=== PATIENT | male | born 1985 | race Caucasian/White ===

== ENCOUNTER 2016-12-29 01:25 | Emergency (ER) | payer OTHER ==
[2016-12-29 01:33] VITALS: BP 158/80; PULSE 89; O2SAT 98
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
--- NOTE | 2016-12-29 09:17 | XRAY ---
Indication: Right back pain. Comparison: April 15, 2015. 3 views of the lumbar spine unchanged again demonstrating normal alignment with minimal L3-L5 anterior endplate spurring, and partially visualized left femoral head orthopedic hardware. Again no new/acute findings.
== END 2016-12-29 02:10 | disposition home or self-care (01) ==
LOC: ED 01:25
DX: M54.5 Low back pain (principal); G89.29 Other chronic pain; M62.830 Muscle spasm of back
CPT/HCPCS: 72100; 80307; 99282; 99283

== ENCOUNTER 2017-01-20 13:23 | Emergency (ER) | payer OTHER ==
[2017-01-20] MEDS ORDERED: TORAdol 30 mg Injection IM ONE (13:32)
[2017-01-20] MEDS ORDERED: Norflex 60 MG/2 ML IM ONE (13:33)
[2017-01-20] MEDS ORDERED: Norflex 60 MG/2 ML ONE (13:36)
[2017-01-20] MEDS ORDERED: TORAdol 30 mg Injection ONE (13:36)
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
[2017-01-20 14:25] VITALS: BP 142/74; PULSE 66; O2SAT 98
--- NOTE | 2017-01-20 21:28 | XRAY ---
Indication: Pain following fall. Comparison: December 29, 2016. 5 views of the lumbar spine unchanged again demonstrating normal alignment with minimal L3-L5 anterior endplate spurring, L5-S1 disc space narrowing, and partially visualized left femoral head orthopedic hardware. No new/acute findings
--- NOTE | 2017-01-20 21:28 | XRAY ---
Indication: Pain following fall. Comparison: None 2 views of the right hip negative for acute fracture, dislocation, or suspicious bony lesions. Soft tissues unremarkable.
== END 2017-01-20 14:25 | disposition home or self-care (01) ==
LOC: ED 13:23
DX: S70.01XA Contusion of right hip, initial encounter (principal); S39.012A Strain of muscle, fascia and tendon of lower back, initial encounter; W01.0XXA Fall on same level from slipping, tripping and stumbling without subsequent striking against object, initial encounter; Y93.02 Activity, running; M54.5 Low back pain
CPT/HCPCS: 72110; 73502; 96372; 99284; J1885; J2360